=== PATIENT | male | born 1945 | race Two or more races ===

== ENCOUNTER → 2017-04-28 | Outpatient (CLI) | payer OTHER | END | disposition home or self-care (01) | LOC: PPH VACUNA 12:36 | DX: Z23 Encounter for immunization (principal) ==

== ENCOUNTER 2017-09-15 09:02 | Outpatient (CLI) | payer OTHER | END 2017-09-15 09:18 | disposition home or self-care (01) | LOC: RAD 501 09:02 | DX: M50.10 Cervical disc disorder with radiculopathy, unspecified cervical region (principal); M54.6 Pain in thoracic spine; M54.14 Radiculopathy, thoracic region; M54.30 Sciatica, unspecified side ==

== ENCOUNTER → 2017-09-29 | Outpatient (CLI) | payer OTHER | END | disposition home or self-care (01) | LOC: MRI 14:17 | DX: M77.8 Other enthesopathies, not elsewhere classified (principal); M77.32 Calcaneal spur, left foot; M54.30 Sciatica, unspecified side; M54.40 Lumbago with sciatica, unspecified side; M51.16 Intervertebral disc disorders with radiculopathy, lumbar region | CPT/HCPCS: 72148 ==

== ENCOUNTER 2021-03-18 07:28 | Outpatient (CLI) | payer OTHER | END 2021-03-18 07:30 | disposition home or self-care (01) | LOC: EDBD 07:28 → NUCLEAR 07:28 | PROVIDERS: ATTEND Internal Medicine Cardiovascular Disease | DX: R07.89 Other chest pain (principal); I25.10 Atherosclerotic heart disease of native coronary artery without angina pectoris; I50.1 Left ventricular failure, unspecified | CPT/HCPCS: 78452; 93017; A9500; J0153 ==

== ENCOUNTER 2021-06-30 12:50 | Outpatient (CLI) | payer OTHER | END 2021-06-30 12:55 | disposition home or self-care (01) | LOC: TOM 12:50 | PROVIDERS: ATTEND Urology | DX: K40.91 Unilateral inguinal hernia, without obstruction or gangrene, recurrent (principal) ==

== ENCOUNTER 2024-01-19 09:01 | Outpatient (CLI) | payer OTHER | END 2024-01-19 09:08 | disposition home or self-care (01) | LOC: RAD 09:01 | DX: M25.549 Pain in joints of unspecified hand (principal) ==

== ENCOUNTER 2024-03-29 11:01 | Outpatient (CLI) | payer OTHER | END 2024-03-29 11:02 | disposition home or self-care (01) | LOC: NUCLEAR 11:01 | PROVIDERS: ATTEND Internal Medicine | DX: I77.1 Stricture of artery (principal); I25.9 Chronic ischemic heart disease, unspecified; I70.201 Unspecified atherosclerosis of native arteries of extremities, right leg; I87.8 Other specified disorders of veins ==

== ENCOUNTER 2024-05-02 07:09 | Outpatient (CLI) | payer OTHER | END 2024-05-02 07:10 | disposition home or self-care (01) | LOC: NUCLEAR 07:09 | PROVIDERS: ATTEND Internal Medicine | DX: I20.9 Angina pectoris, unspecified (principal) | CPT/HCPCS: 78452; 93017; A9500; J0153 ==

== ENCOUNTER 2024-06-05 09:44 | Outpatient (CLI) | payer OTHER | END 2024-06-05 09:47 | disposition home or self-care (01) | LOC: MRI 09:44 | PROVIDERS: ATTEND Neuromusculoskeletal Medicine & OMM | DX: R41.3 Other amnesia (principal); G25.0 Essential tremor | CPT/HCPCS: 70553; Q9965 ==